=== PATIENT | female | born 2000 | race Caucasian/White ===

== ENCOUNTER 2021-03-26 14:29 | Emergency (ER) | payer OTHER ==
[~2021-03-26 14:29] MED LIST: NORCO 5-325 TA1 EACH PO
== END 2021-03-26 18:12 | disposition home or self-care (01) ==
LOC: ER1 14:29
DX: Z20.822 Contact with and (suspected) exposure to COVID-19 (principal); F17.200 Nicotine dependence, unspecified, uncomplicated; Z90.49 Acquired absence of other specified parts of digestive tract; Z90.89 Acquired absence of other organs; Z88.0 Allergy status to penicillin
CPT/HCPCS: 99283; U0002

== ENCOUNTER 2022-03-15 13:13 | Emergency (ER) | payer OTHER ==
[~2022-03-15] VITALS: Ht 176.5 cm; Wt 127.0 kg
[2022-03-15 14:44] LABS: HEMOGLOBIN 10.7 gm/dl (12.3-15.3); RED BLOOD COUNT 4.67 M/UL (4.00-5.10); WHITE BLOOD COUNT 11.7 K/UL (4.5-11.0)
[2022-03-15 15:05] LABS: BUN/CREATININE RATIO 8 (0-10)
[2022-03-15] MEDS ORDERED: ZOFRAN ODT 4 MG4 MG SL (17:11)
[2022-03-15] MEDS ORDERED: CEPHALEXIN500 MG PO (17:11)
[2022-03-15] MEDS ORDERED: SPRINTEC 28 DA1 EACH PO (17:55)
[2022-03-15] MEDS ORDERED: LORATADINE10 MG PO (17:55)
== END 2022-03-15 17:54 | disposition home or self-care (01) ==
LOC: ER1 13:13
PROVIDERS: Emergency Medicine
DX: N39.0 Urinary tract infection, site not specified (principal); F17.290 Nicotine dependence, other tobacco product, uncomplicated
CPT/HCPCS: 80053; 81001; 83605; 83690; 83735; 84439; 84443; 84703; 85025; 87040; 87077; 87086; 87186; 96374; 99284; J0696